=== PATIENT | male | born 1950 | race Caucasian/White ===

== ENCOUNTER 2020-05-08 07:50 | Outpatient (CLI) | payer OTHER, SELFPAY | END 2020-05-08 07:51 | disposition home or self-care (01) | LOC: ANHAUDIO 07:53 | PROVIDERS: PCP Nurse Practitioner Adult Health; Visit Provider Otolaryngology | DX: H90.71 Mixed conductive and sensorineural hearing loss, unilateral, right ear, with unrestricted hearing on the contralateral side (principal); H90.42 Sensorineural hearing loss, unilateral, left ear, with unrestricted hearing on the contralateral side | CPT/HCPCS: 92557; 92567 ==

== ENCOUNTER 2020-08-22 08:30 | Outpatient (RCR) | payer OTHER, SELFPAY | END 2020-08-22 23:59 | disposition home or self-care (01) | LOC: ANHAUDIO 08:30 | PROVIDERS: PCP Nurse Practitioner Adult Health; Visit Provider Nurse Practitioner Adult Health | DX: Z46.1 Encounter for fitting and adjustment of hearing aid (principal) | CPT/HCPCS: 99199; V5261; V5264 ==

== ENCOUNTER 2021-11-21 09:55 | Outpatient (CLI) | payer MEDICARE, SELFPAY ==
--- NOTE | 2021-11-21 10:56 | ECG_ITS ---
Measurements Intervals [place] Rate: 81 P: ND: 0 QRS: -8 QRSD: 93 T: 52 QT: 378 QTc: 439 Interpretive Statements POSSIBLE ATRIAL FIBRILLATION MODERATE VOLTAGE CRITERIA FOR LVH, CONSIDER NORMAL VARIANT [MEETS CRITERIA IN ONE OF: R(aVL), S(V1), R(V5), R(V5/V6)+S(V1)] BASELINE ARTIFACT NONSPECIFIC T-WAVE ABNORMALITY ABNORMAL ECG NO PREVIOUS ECG AVAILABLE FOR COMPARISON Electronically Signed On 11-21-2021 17:02:30 CDT by Ricardo Joe M.D.
[2021-11-21 11:30] LABS: Basophils Absolute Auto 0.1 K/mm3 (0.0-0.1); Basophils Percent Auto 0.7 % (0.2-1.2); Eosinophils Absolute Auto 0.1 K/mm3 (0-0.3); Eosinophils Percent Auto 1.6 % (0-4.4); Hematocrit 42.6 % (42.0-52.0); Hemoglobin 14.8 g/dL (14.0-18.0); Immature Granulocyte Absolute 0.04 K/mm3 (0.00-0.031); Immature Granulocyte Percent A 0.5 % (0-0.5); Lymphocytes Absolute Auto 2.51 K/mm3 (0.9-3.2); Lymphocytes Percent Auto 33.1 % (18.3-44.2); Mean Corpuscular HGB Conc 34.7 g/dl (32-36); Mean Corpuscular Hemoglobin 33.2 pg (26-34); Mean Corpuscular Volume 95.5 fl (80-100); Mean Platelet Volume 9.9 fl (7.4-10.4); Monocytes Absolute Auto 0.6 K/mm3 (0.1-0.6); Monocytes Percent Auto 7.4 % (2.6-8.5); Neutrophils Absolute Auto 4.3 K/mm3 (1.3-6.7); Neutrophils Percent Auto 56.7 % (45.5-73.1); Platelet Count Result 206 k/mm3 (150-375); Red Blood Count 4.46 M/mm3 (4.6-6.20); Red Cell Distribution Width 12.5 % (11.5-14.5); White Blood Count 7.6 K/mm3 (4.5-10.0)
[2021-11-21 11:41] LABS: INR 1.1; Partial Thromboplastin Time 24.1 SECONDS (22.3-36.8); Prothrombin Time 13.3 Seconds (11.1-14.7)
[2021-11-21 11:42] LABS: Albumin Level 4.6 g/dL (3.5-5.1); Anion Gap 8 mmol/L (8-16); Blood Urea Nitrogen 19 mg/dL (9-20); Calcium 9.4 mg/dL (8.4-10.2); Carbon Dioxide 25 mmol/L (22-30); Chloride 106 mmol/L (98-107); Estimated Glomerular Filt Rate 22; Glucose 91 mg/dL (65-110); Potassium 4.2 mmol/L (3.4-5.0); Sodium 139 mmol/L (137-145)
[2021-11-21 11:52] LABS: Hemoglobin A1C 4.8 % (<5.7)
[2021-11-21 12:16] LABS: Appearance Urine Clear (Clear); Bilirubin Urine Negative (Negative); Blood Urine Negative (Negative); Color Urine Yellow (Yellow); Glucose Urine UA Negative (Negative); Ketones Urine Negative (Negative); Leukocyte Esterase Ur Negative LEU/UL (Negative); Nitrate Urine Negative (Negative); Protein Urine Negative (Negative); Urobilinogen Urine 0.2 mg/dL (<2.0); pH Urine 6.5 (5.0-9.0)
[2021-11-21 12:33] LABS: Add Urine Microscopic? NO
[2021-11-21 12:45] LABS: Urine Cotinine NEGATIVE
== END 2021-11-21 09:56 | disposition home or self-care (01) ==
LOC: ANHSURGERY 10:04
PROVIDERS: PCP Nurse Practitioner Adult Health; Visit Provider Orthopaedic Surgery
DX: Z01.818 Encounter for other preprocedural examination (principal); M17.11 Unilateral primary osteoarthritis, right knee; I48.91 Unspecified atrial fibrillation; Z51.81 Encounter for therapeutic drug level monitoring; Z79.899 Other long term (current) drug therapy
CPT/HCPCS: 80048; 80307; 81003; 82040; 83036; 85025; 85610; 85730; 86850; 86900; 86901; 87081; 93005

== ENCOUNTER 2021-11-22 10:48 | Emergency (ER) | payer MEDICARE, SELFPAY ==
[2021-11-22 11:19] VITALS: BP 155/101; PULSE 77; RESP 14; TEMP 36.6; O2SAT 99
[2021-11-22 12:07] VITALS: BP 169/100; PULSE 58; RESP 12; O2SAT 97
--- NOTE | 2021-11-22 12:55 | ED.GENADULT ---
HPI - General Adult General Chief complaint: Recheck/Abnormal Lab/Rx Stated complaint: high blood pressure Time Seen by Provider: 11/22/21 12:02 History of Present Illness HPI narrative: Patient is a 71-year-old male who presents the ER due to concerns of elevated blood pressures. Reports that his diastolic blood pressures been around 100 mmHg. He was undergoing routine preoperative labs evaluation yesterday when he was found to have new CKD and elevated blood pressures. His is concerned that he may end up having a hemorrhagic stroke due to his blood pressure level. He has been scheduled a follow-up appointment with Dr. Murphy in 5 days. Patient has no chest pain or shortness of breath. No loss of consciousness. Patient reports he used to take 800 mg of ibuprofen twice a day for years and recently decreased to 400 mg daily. He is discontinued recently due to need for surgery to his knee. Related Data Home Medications Medication Instructions Recorded Confirmed esomeprazole magnesium 40 mg 40 mg PO DAILY PRN 07/08/21 11/21/21 capsule,delayed release ibuprofen 200 mg tablet 800 mg PO BID PRN 07/08/21 11/21/21 acetaminophen [Tylenol Ex Str 1,000 mg PO Q6H PRN 11/21/21 11/21/21 Rapid Release] loratadine-pseudoephedrine 1 tablet PO DAILY PRN 11/21/21 11/21/21 [Claritin-D 24 Hour] Allergies Allergy/AdvReac Type Severity Reaction Status Date / Time No Known Allergies Allergy Verified 11/21/21 10:10 Review of Systems Review of Systems: All systems reviewed & are unremarkable except as noted in HPI and below Cardiovascular: Cardiovascular: Denies chest pain and Denies radiating jaw, neck or arm pain Respiratory: Respiratory: Denies cough and Denies dyspnea Gastrointestinal: Gastrointestinal: Denies nausea and Denies vomiting Musculoskeletal: Musculoskeletal: Reports arthralgias (Chronic knee pain) [facility] Past Medical History Medical History Arthritis Bilateral hearing loss Carpal tunnel syndrome bilateral per patient questionnaire Chronic sinusitis Degenerative joint disease of knee Hearing loss History of sinus problem Indigestion Knee effusion Osteoarthritis of left knee Right knee pain Seasonal allergies Wears dentures Wears glasses Surgical History Surgical History History of arthroscopy of knee Rt knee scopes. between the Lt and Rt knee the pt. has had a total of 5 knee surgeries. History of arthroscopy of left knee Family History Family History Unknown Hypertension Cardiovascular disease Mother Heart failure Other Heart disease Social History Social History Smoking packs per day: 1 Smoking cigarettes per day: 20.0 Years smoked: 50 Smoking pack-years: 50.00 Smoking status: Former smoker Tobacco type: cigarettes Smoking end date: 11/14/21 Alcohol intake: current Alcohol use details: Rarely Substance use: never Additional living arrangements comments: Spiritual care concerns: No Exam Narrative: GENERAL: Well-appearing, well-nourished, and in no acute distress. HEAD: Normocephalic, atraumatic. CHEST: Clear to auscultation. No respiratory distress. HEART: Regular rate and rhythm. Normal peripheral pulses. NEURO: Alert and oriented x3. PSYCH: Normal mood and affect. Course Course Emergency Course: Blood pressure is improved to 133/96 while sitting in the room. Blood pressure evaluation of each arm appears equal as well. Discussed he should keep a blood pressure journal over the next few days before seeing Dr. Murphy. At that time they can discuss what type of blood pressure management he may require. Vital Signs Vital signs: Vital Signs Temperature 97.8 F 11/22/21 11:19 Pulse Rate 77 11/22/21 11:19 Resp
[2021-11-22 12:57] VITALS: BP 133/96; PULSE 68; RESP 18; O2SAT 100
== END 2021-11-22 13:31 | disposition home or self-care (01) ==
PROVIDERS: Emergency Provider Emergency Medicine; PCP Nurse Practitioner Adult Health
DX: R03.0 Elevated blood-pressure reading, without diagnosis of hypertension (principal); N18.9 Chronic kidney disease, unspecified; J32.9 Chronic sinusitis, unspecified; M17.12 Unilateral primary osteoarthritis, left knee; Z87.891 Personal history of nicotine dependence
CPT/HCPCS: 99281

== ENCOUNTER 2021-12-10 08:25 | Outpatient (CLI) | payer MEDICARE, SELFPAY ==
--- NOTE | ~2021-12-10 | US_ITS ---
EXAMINATION: US aorta DATE: 12/10/2021 10:29 INDICATION: Prior smoker, hypertension TECHNIQUE: Grayscale, color Doppler, and pulsed Doppler images of the aorta and common iliac arteries were obtained. COMPARISON: None. FINDINGS: Maximum vascular dimensions are as follows: Proximal aorta: 2.9 cm Mid aorta: 2.5 cm Distal aorta: 2.6 cm Right common iliac artery: 0.9 cm Left common iliac artery: 1.0 cm There is no evidence of abdominal aortic aneurysm. IMPRESSION: 1. No sonographically detected abdominal aortic aneurysm. Reviewed, dictated and finalized at location A.
--- NOTE | ~2021-12-10 | US_ITS ---
US renal BI 12/10/2021 10:28 Procedure: Realtime transabdominal ultrasound of the kidneys and bladder. Indication: Hypertension. Comparison: No prior studies for comparison. Findings: Renal echotexture is normal bilaterally without hydronephrosis, contour deforming mass or r enal calculus. The right kidney measures 9 cm and left kidney measures 9.5 cm. Bladder within normal limits. Impression: 1: Unremarkable renal ultrasound. No stones, masses or hydronephrosis. Reviewed, dictated and finalized at location A. Impression: 1: Unremarkable renal ultrasound. No stones, masses or hydronephrosis.
== END 2021-12-10 08:26 | disposition home or self-care (01) ==
LOC: ANHIMG 08:28
PROVIDERS: PCP Nurse Practitioner Adult Health; Visit Provider Internal Medicine Nephrology
DX: R03.0 Elevated blood-pressure reading, without diagnosis of hypertension (principal); I71.4 Abdominal aortic aneurysm, without rupture; R94.4 Abnormal results of kidney function studies
CPT/HCPCS: 76775

== ENCOUNTER 2024-10-02 13:16 | Emergency (ER) | payer MEDICARE, SELFPAY ==
--- NOTE | 2024-10-02 13:28 | ED.GENADULT ---
HPI - General Adult General Chief complaint: Upper Respiratory Infection Stated complaint: cold symptoms Time Seen by Provider: 10/02/24 13:28 Source: patient Mode of arrival: ambulatory Limitations: no limitations History of Present Illness HPI narrative: 74-year-old male patient presents to the [facility] with complaints of cold symptoms for the past week. Patient states his symptoms are resolving but continues to have a cough and a runny nose. Denies fevers, body aches or chills at this time. Denies any abdominal pain, nausea, vomiting or diarrhea. Patient states he did have a decrease in appetite but that is also resolving. Patient states he has been taking [id number] Mucinex as advised by his telephone triage nurse because he does have a history of AFib. Related Data Home Medications ?Medication ?Instructions ?Recorded ?Confirmed ?Last Taken ?Type acetaminophen 500 mg tablet 500 mg PO Q6H PRN 10/21/23 Unknown History amlodipine 2.5 mg tablet 2.5 mg PO DAILY 10/21/23 Unknown History famotidine 20 mg tablet 20 mg PO BID 10/21/23 Unknown History fexofenadine 180 mg tablet 180 mg PO DAILY 10/21/23 Unknown History (Allergy Relief (fexofenadine)) lisinopril 20 mg tablet 20 mg PO DAILY 10/21/23 Unknown History metoprolol succinate 50 mg 50 mg PO DAILY 10/21/23 Unknown History tablet,extended release 24 hr rivaroxaban 20 mg tablet 20 mg PO DAILY 10/21/23 Unknown History triamcinolone acetonide 55 mcg 1 spray intranasal DAILY 10/21/23 Unknown History nasal spray aerosol (Nasacort) magnesium glycinate 100 mg (as 400 mg PO DAILY 10/02/24 10/02/24 Unknown History glycinate) tablet (Mag Glycinate) Allergies Allergy/AdvReac Type Severity Reaction Status Date / Time No Known Allergies Allergy Verified 10/02/24 13:38 Review of Systems Review of Systems: CONSTITUTIONAL: Denies fever, chills, or sweats. EYES: Denies visual changes, redness, or discharge. ENT: Positive rhinorrhea, congestion, denies sore throat, or otalgia. CARDIOVASCULAR: Denies chest pain, palpitations, or edema. RESPIRATORY: positive cough , denies new dyspnea. GASTROINTESTINAL: Denies abdominal pain, nausea, vomiting, or diarrhea. GENITOURINARY: Denies dysuria or hematuria. SKIN: Denies rash or itching. MUSCULOSKELETAL: Denies back pain, joint pain, or myalgia. NEUROLOGIC: Denies headache, numbness, or weakness. PSYCHIATRIC: Denies anxiety or depression. [facility] Past Medical History Medical History Osteoarthritis of knees, bilateral Paroxysmal atrial fibrillation GERD (gastroesophageal reflux disease) Hypertension Seasonal allergies Carpal tunnel syndrome bilateral per patient questionnaire Arthritis Indigestion History of sinus problem Wears dentures Wears glasses Osteoarthritis of left knee Knee effusion Degenerative joint disease of knee Right knee pain Chronic sinusitis Bilateral hearing loss Surgical History Surgical History History of carpal tunnel release History of arthroscopy of left knee History of arthroscopy of knee Rt knee scopes. between the Lt and Rt knee the pt. has had a total of 5 knee surgeries. Family History Family History Unknown Hypertension Cardiovascular disease Mother Heart failure Other Heart disease Social History Social History Smoking packs per day: 1 Smoking cigarettes per day: 20.0 Years smoked: 50 Smoking pack-years: 50.00 Smoking status: Former smoker Tobacco type: cigarettes Smoking end date: 11/14/21 Alcohol intake: current Alcohol use details: Rarely Substance use: never Do You Feel Safe in your Home?: Yes Lack of Transportation: No Lack of Food: Never True Current Housing: I Have Housing Concerned About Future Housing: No Difficulty Paying Gas/Electric Bills: No Currently Unemployed: No Education: Don't Know Difficulty w/ Childcare or Family Care: No Living arrangements: with family Additional living arrangements comments: Occupation/Education: retired Spiritual care concerns: No Agree to blood products: Yes Comments At the time of my signature I agree with nursing past medical history, surgical, social, and family history. There is no relevant family history pertinent to the presenting complaint. Exam Narrative: GENERAL: Well-appearing, well-nourished, and in no acute distress. HEAD: Normocephalic, atraumatic. EYES: PERRLA and EOMI. ENT: Nares clear, no rhinorrhea or epistaxis. Mucous membranes moist. posterior pharynx with no erythema, tonsillar enlargement, exudates or lesions present. Bilateral TMs are clear no erythema foreign bodies canal. NECK: Supple. No lymphadenopathy CHEST: Clear to auscultation. No respiratory distress. HEART: Regular rate and rhythm. No murmur heard. Normal peripheral pulses. ABDOMEN: Soft, nontender, nondistended, normal active bowel sounds. EXTREMITIES: Normal range of motion. No edema. SKIN: Warm, dry, no rash. NEURO: No focal deficits. Alert and oriented x3. Course Course Level of Care: Express Care Visit Vital Signs Vital signs: Vital Signs Temperature 36.3 C L 10/02/24 13:32 Pulse Rate 63 10/02/24 13:32 Respiratory Rate 18 10/02/24 13:32 Blood Pressure 110/66 10/02/24 13:32 Pulse Oximetry 100 10/02/24 13:32 Oxygen Delivery Room Air 10/02/24 13:32 Temperature 36.3 C L 10/02/24 13:32 Pulse Rate 63 10/02/24 13:32 Respiratory Rate 18 10/02/24 13:32 Blood Pressure 110/66 10/02/24 13:32 Pulse Oximetry 100 10/02/24 13:32 Oxygen Delivery Room Air 10/02/24 13:32 Vital signs reviewed. Medical Decision Making MDM Narrative Medical decision making narrative: Discussed with patient that his point of care testing for influenza a, COVID and strep all tested negative today. Discussed with him that since his symptoms are resolving he is most likely almost done with the virus. Discussed with him that I will give him some Tessalon Perles to help with the cough and he can continue taking the Mucinex as needed. If patient continues to have symptoms past 10 days or feels that his symptoms are getting worse then he needs to see his primary doctor Or be seen in the emergency department for further evaluation. Patient is aware the plan of care denies any other questions or concerns at this time. Differential Diagnosis Differential Diagnosis: Differential diagnosis: Allergic rhinitis, chronic sinusitis, tonsillitis, acute sinusitis, infectious mononucleosis, seasonal influenza, pertussis, diphtheria, meningococcal disease, viral syndrome, viral bronchitis, RSV, COVID-19 Vital Signs Vital Signs: Vital Signs Temperature 36.3 C L 10/02/24 13:32 Pulse Rate 63 10/02/24 13:32 Respiratory Rate 18 10/02/24 13:32 Blood Pressure 110/66 10/02/24 13:32 Pulse Oximetry 100 10/02/24 13:32 Oxygen Delivery Room Air 10/02/24 13:32 Temperature 36.3 C L 10/02/24 13:32 Pulse Rate 63 10/02/24 13:32 Respiratory Rate 18 10/02/24 13:32 Blood Pressure 110/66 10/02/24 13:32 Pulse Oximetry 100 10/02/24 13:32 Oxygen Delivery Room Air 10/02/24 13:32 Lab Data Labs: Lab Results 10/02/24 Range/Units 13:59 POC Influenza A Ag Negative (Negative) POC Influenza B Ag Negative (Negative) POC SARS CoV-2 Ag Negative (Negative) POC Grp A Strep Screen Negative (Negative) Critical Care Time Critical Care Time Critical Care Time: No Discharge Plan Discharge Clinical Impression: Viral URI with cough Patient Disposition: Home, Self-Care Condition: Stable Instructions: Antibiotic Form, Viral Syndrome (ED) Additional Instructions: Viral illness may last between 7-12days; antibiotic is NOT recommended at this time. Recommend antihistamine such as Benadryl at night time and Claritin/Zyrtec/[place] during the day Cough syrup may cause drowsiness; avoid driving or take it at night time. Also, recommend symptomatic treatment includes: rest, fluids, and increase humidity of the air at home. Recommend Acetaminophen or nonsteroidal anti-inflammatory agents (NSAIDs) as directed in the bottle to reduce fever and/pain/headache. Avoid smoking/second-hand smoke. Limit visits to areas with large crowds. Please schedule a follow-up visit with your personal physician for further evaluation and treatment within 3-5days. Including recheck and discussion of your blood pressure. If your symptoms persist, change or worsen significantly before you can contact your personal physician then please, without delay, go to the emergency department for further evaluation. Patient Language: Macedonian Prescriptions: New benzonatate 200 mg capsule 200 mg PO TID PRN (Reason: cough) 10 Days Qty: 30 0RF No Action Mag Glycinate 100 mg tablet 400 mg PO DAILY metoprolol succinate 50 mg tablet extended release 24 hr 50 mg PO DAILY amlodipine 2.5 mg tablet 2.5 mg PO DAILY lisinopril 20 mg tablet 20 mg PO DAILY rivaroxaban 20 mg tablet 20 mg PO DAILY Rx Instructions: must administer with evening meal famotidine 20 mg tablet 20 mg PO BID fexofenadine [Allergy Relief (fexofenadine)] 180 mg tablet 180 mg PO DAILY triamcinolone acetonide [Nasacort] 55 mcg aerosol,spray 1 spray intranasal DAILY Rx Instructions: administer into each nostril acetaminophen 500 mg tablet 500 mg PO Q6H PRN Follow-up/Referrals: Mamta Adams APRN [Primary Care Provider] - Time of Disposition: 14:16
[2024-10-02 13:32] VITALS: BP 110/66; PULSE 63; RESP 18; TEMP 36.3; O2SAT 100
[2024-10-02 14:00] LABS: EDCOVIDSCREEN Negative (Negative); EDINFLUASCREEN Negative (Negative); EDINFLUBSCREEN Negative (Negative); EDSTREPNEGPOS1 Negative (Negative)
== END 2024-10-02 14:18 | disposition home or self-care (01) ==
PROVIDERS: Emergency Provider Nurse Practitioner Family; PCP Nurse Practitioner Family
DX: J06.9 Acute upper respiratory infection, unspecified (principal); B97.89 Other viral agents as the cause of diseases classified elsewhere; I48.91 Unspecified atrial fibrillation; I48.0 Paroxysmal atrial fibrillation; I10 Essential (primary) hypertension; Z87.891 Personal history of nicotine dependence; Z20.822 Contact with and (suspected) exposure to COVID-19
CPT/HCPCS: 87081; 87426; 87804; 87880; 99213; G0463